=== PATIENT | female | born 1965 | race Caucasian/White ===

== ENCOUNTER 2021-01-20 20:54 | Inpatient (IN) | payer MEDICARE, OTHER ==
[~2021-01-20] VITALS: Ht 160 cm; Wt 108.9 kg
[~2021-01-20 20:54] MED LIST: TESSALON PERLE100 MG PO; VENTOLIN HFA 66.7 GM INH
[2021-01-20 21:54] LABS: HEMOGLOBIN 14.3 gm/dl (12.3-15.3); RED BLOOD COUNT 4.47 M/UL (4.00-5.10); WHITE BLOOD COUNT 11.1 K/UL (4.5-11.0)
[2021-01-20 22:22] LABS: BUN/CREATININE RATIO 30 (0-10)
[2021-01-21] MEDS ORDERED: CLONAZEPAM1 MG PO (01:23)
[2021-01-21] MEDS ORDERED: HYDROXYZINE PAM25 MG PO (01:24)
[2021-01-21] MEDS ORDERED: TRAZODONE HCL100 MG PO (01:24)
[2021-01-21] MEDS ORDERED: ARICEPT5 MG PO (01:25)
[2021-01-21] MEDS ORDERED: FAMOTIDINE20 MG PO (01:25)
[2021-01-21] MEDS ORDERED: HYDROCODON-ACE1 EAC2 PO (01:25)
[2021-01-21] MEDS ORDERED: CYMBALTA60 MG PO (18:55)
[2021-01-22 03:58] LABS: HEMOGLOBIN 12.9 gm/dl (12.3-15.3); RED BLOOD COUNT 4.07 M/UL (4.00-5.10); WHITE BLOOD COUNT 9.4 K/UL (4.5-11.0)
[2021-01-22 04:20] LABS: BUN/CREATININE RATIO 22 (0-10)
[2021-01-24 12:52] LABS: HEMOGLOBIN 14.6 gm/dl (12.3-15.3); WHITE BLOOD COUNT 9.5 K/UL (4.5-11.0)
[2021-01-24 12:54] LABS: RED BLOOD COUNT 4.55 M/UL (4.00-5.10)
[2021-01-24 13:16] LABS: BUN/CREATININE RATIO 17 (0-10)
[2021-01-24] MEDS ORDERED: MEDROL DOSEPAK 24 MG PO (17:04)
[2021-01-24] MEDS ORDERED: IPRAT-ALBUT 0.5-3 ML NEB (17:04)
[2021-01-24] MEDS ORDERED: SPIRIVA HANDIH18 MCG INH (17:04)
[2021-01-24] MEDS ORDERED: ADVAIR 250-501 EACH INH (17:04)
[2021-01-24] MEDS ORDERED: ATORVASTATIN CA20 MG PO (17:04)
[2021-01-24] MEDS ORDERED: ASPIRIN EC81 MG PO (17:04)
== END 2021-01-24 20:50 | disposition home health service (06) | DRG 191 ==
LOC: ER1 20:54 → M/S 23:49 → CDU 23:49 → M/S 23:49
PROVIDERS: Internal Medicine; Physician Assistant; ADMIT Internal Medicine
PROC: B24BZZ4 Ultrasonography of Heart with Aorta, Transesophageal (ICD-10-PCS; principal; 2021-01-21)
PROC: B2111ZZ Fluoroscopy of Multiple Coronary Arteries using Low Osmolar Contrast (ICD-10-PCS; 2021-01-24)
DX: J44.1 Chronic obstructive pulmonary disease with (acute) exacerbation (principal); F13.20 Sedative, hypnotic or anxiolytic dependence, uncomplicated; J20.9 Acute bronchitis, unspecified; R07.89 Other chest pain; F17.210 Nicotine dependence, cigarettes, uncomplicated; G47.00 Insomnia, unspecified; F41.9 Anxiety disorder, unspecified; Z20.822 Contact with and (suspected) exposure to COVID-19; F11.90 Opioid use, unspecified, uncomplicated; F32.9 Major depressive disorder, single episode, unspecified; F43.10 Post-traumatic stress disorder, unspecified; I10 Essential (primary) hypertension; K21.9 Gastro-esophageal reflux disease without esophagitis; E66.01 Morbid (severe) obesity due to excess calories; I08.1 Rheumatic disorders of both mitral and tricuspid valves; Z96.652 Presence of left artificial knee joint; M19.90 Unspecified osteoarthritis, unspecified site; M51.36 Other intervertebral disc degeneration, lumbar region; G89.29 Other chronic pain; Z79.82 Long term (current) use of aspirin; Z68.30 Body mass index [BMI] 30.0-30.9, adult; Z98.1 Arthrodesis status; Z90.710 Acquired absence of both cervix and uterus; Z98.84 Bariatric surgery status; Z82.49 Family history of ischemic heart disease and other diseases of the circulatory system
CPT/HCPCS: ECHO; 36415; 71045; 78452; 80053; 80061; 82550; 82553; 83036; 83735; 83874; 83880; 84132; 84439; 84443; 84484; 85025; 85379; 85610; 85730; 93005; 93017; 93306; 94640; 94664; 94760; 96372; 99152; 99285; A9502; C1769; C1894; G0378; J1644; J1650; J2250; J2785; J2930; J3010; J7040; Q0177; Q9967; U0002

== ENCOUNTER 2021-06-23 16:41 | Emergency (ER) | payer MEDICARE ==
[~2021-06-23 16:41] MED LIST changes: +ADVAIR 250-501 EACH INH; +ARICEPT5 MG PO; +ASPIRIN EC81 MG PO; +ATORVASTATIN CA20 MG PO; +CLONAZEPAM1 MG PO; +CYMBALTA60 MG PO; +FAMOTIDINE20 MG PO; +HYDROCODON-ACE1 EAC2 PO; +HYDROXYZINE PAM25 MG PO; +IPRAT-ALBUT 0.5-3 ML NEB; +MEDROL DOSEPAK 24 MG PO; +SPIRIVA HANDIH18 MCG INH; +TRAZODONE HCL100 MG PO
[2021-06-23 17:19] LABS: HEMOGLOBIN 14.9 gm/dl (12.3-15.3); RED BLOOD COUNT 4.72 M/UL (4.00-5.10); WHITE BLOOD COUNT 16.2 K/UL (4.5-11.0)
[2021-06-23 17:39] LABS: BUN/CREATININE RATIO 21 (0-10)
[2021-06-23] MEDS ORDERED: BROMFED DM COU473 ML PO (19:20)
[2021-06-23] MEDS ORDERED: PREDNISONE20 MG PO (19:20)
== END 2021-06-23 21:16 | disposition home or self-care (01) ==
LOC: ER1 16:41
PROVIDERS: Nurse Practitioner
DX: J44.1 Chronic obstructive pulmonary disease with (acute) exacerbation (principal); Z20.822 Contact with and (suspected) exposure to COVID-19; F17.210 Nicotine dependence, cigarettes, uncomplicated
CPT/HCPCS: 36600; 71045; 80053; 81001; 82550; 82553; 82803; 83605; 83874; 83880; 84484; 85025; 86140; 87040; 93005; 94660; 99285; J7030; U0002